=== PATIENT | female | born 1990 | race Caucasian/White ===

== ENCOUNTER 2018-10-10 07:37 | Inpatient (IN) ==
[2018-10-10] MEDS ORDERED: OXYTOCIN 30 UNITS/500 ML BAG IV PRN (07:53)
[2018-10-10] MEDS ORDERED: LACTATED RINGER'S 1,000 ML IV PRN ×2 (07:53→20:49)
[2018-10-10] MEDS ORDERED: DINOPROSTONE 10 MG INSERT PV ONE (07:53)
[2018-10-10] MEDS ORDERED: PENICILLIN G POTASSIUM 6 MU in DEXTROSE 5% 250 ML IV ONE (08:30)
[2018-10-10 08:31] LABS: Hematocrit (blood only) 39.1 % (37-47); Hemoglobin 13.3 g/dL (12.0-16.0); Mean Corpuscular Volume 89.3 fL (80-100); Platelet Count 202 K/uL (130-400); RDW Coefficient of Variation 13.7 % (11.5-14.5); RDW Standard Deviation 44.9 fL (36.4-46.3); Red Blood Count 4.38 M/uL (4.2-5.4); White Blood Count 10.38 K/uL (4.8-10.8)
--- NOTE | 2018-10-10 08:45 | Obstetrical Progress Note ---
Date of Service October 10, 2018 Subjective Admit Note 27 F at 44.5 weeks admitted for induction of labor for post-dates. GBS positive. Cervix fingertip/50/-3/vertex/posterior/firm/intact. FHT Cat 1. No contractions. Cervidil 10 mg placed vaginally for ripening of cervix. EFW 7.5 lbs. Physical Exam 2 Vital Signs (Past 24 Hours): Last Vital Signs Temp 36.5 C 10/10/18 07:54 Pulse 91 H 10/10/18 07:54 Resp 20 10/10/18 07:54 BP 130/71 10/10/18 07:54
[2018-10-10] MEDS ORDERED: PENICILLIN G POTASSIUM 6 MU in DEXTROSE 5% 250 ML IV STA (18:23)
--- NOTE | 2018-10-10 18:24 | Obstetrical Progress Note ---
Date of Service October 10, 2018 Subjective doing well some increase in contractions noted getting more painful 12/28 cervix 1-2/50/-3/anterior/soft FHT Cat 1 Physical Exam 2 Vital Signs (Past 24 Hours): Last Vital Signs Temp 36.5 C 10/10/18 17:03 Pulse 86 10/10/18 18:16 Resp 18 10/10/18 18:14 BP 122/73 10/10/18 18:16
[2018-10-10] MEDS: LACTATED RINGER'S 1,000 ML IV SCH (18:45)
[2018-10-10] MEDS ORDERED: BUTORPHANOL TARTRATE 1 MG/ML VIAL IV PRN (19:21)
[2018-10-10] MEDS ORDERED: ONDANSETRON INJ 2 MG/ML 2 ML VIAL IV PRN (19:21)
--- NOTE | 2018-10-10 20:49 | Obstetrical Progress Note ---
Date of Service October 10, 2018 Subjective Feeling more contractions Cervix 2/60/-3 Cervidil removed FHT Cat 1 Will start Oxytocin to augment contractions Physical Exam 2 Vital Signs (Past 24 Hours): Last Vital Signs Temp 36.6 C 10/10/18 19:04 Pulse 73 10/10/18 20:45 Resp 16 10/10/18 20:00 BP 125/69 10/10/18 19:13 Pulse Ox 99 10/10/18 20:45
[2018-10-10] MEDS: OXYTOCIN 30 UNITS/500 ML BAG IV PRN (22:21)
[2018-10-10] MEDS: PENICILLIN G POTASSIUM 3 MU in DEXTROSE 5% 100 ML IV PRN (22:24)
[2018-10-11] MEDS ORDERED: ePHEDrine sulfate 50 MG/ML AMP ONE (00:06)
[2018-10-11] MEDS ORDERED: BUPIVACAINE 0.25% 30 ML VIAL ONE (00:06)
[2018-10-11] MEDS ORDERED: fentaNYL citrate 100 MCG/2 ML VIAL ONE (00:06)
[2018-10-11] MEDS ORDERED: fentaNYL 2MCG/ML ROPIV 1.25MG/ML 100 ML BAG EPI ONE (00:07)
[2018-10-11] MEDS: LACTATED RINGER'S 1,000 ML IV SCH (00:53)
[2018-10-11] MEDS ORDERED: DiphenhydrAMINE HCL 50 MG/ML VIAL IV PRN (01:35)
[2018-10-11] MEDS ORDERED: LACTATED RINGER'S 1,000 ML IV PRN (01:35)
[2018-10-11] MEDS ORDERED: fentaNYL 2MCG/ML ROPIV 1.25MG/ML 100 ML BAG EPI PRN (01:35)
[2018-10-11] MEDS ORDERED: NALOXONE HCL 1 MG in SODIUM CHLORIDE 0.9% 1000ML 1,000 ML IV PRN (01:35)
[2018-10-11] MEDS ORDERED: NALBUPHINE HCL INJ 10 MG/ML AMP IV PRN (01:35)
[2018-10-11] MEDS ORDERED: NALOXONE HCL 0.4 MG/1 ML VIAL/CARP IV PRN (01:35)
[2018-10-11] MEDS ORDERED: ePHEDrine sulfate 50 MG/ML AMP IV PRN (01:35)
[2018-10-11] MEDS ORDERED: LIDOCAINE HCL 2% MPF (LOCAL) 5 ML VIAL INFIL ONE (01:38)
[2018-10-11] MEDS: PENICILLIN G POTASSIUM 3 MU in DEXTROSE 5% 100 ML IV PRN ×2 (02:23→06:21)
--- NOTE | 2018-10-11 02:50 | Anesthesiology Consultation ---
Date of Service October 11, 2018 Assessment & Plan Chart Review Chart Review: Acceptable Risk for Labor Epidural Consults Requested none ASA [id number] Proposed Anesthesia Risk / Benefits Reviewed With: PT / POA / Parent / Guardian History Height/Weight Height: 5 ft 3 in Weight: 73.482 kg Allergies Allergy/AdvReac Type Severity Reaction Status Date / Time Cephalosporins Allergy Intermediate Rash Verified 10/10/18 08:27 Sulfa (Sulfonamide Allergy Intermediate Hives Verified 10/10/18 08:27 Antibiotics) Medications Home Medications Medication Instructions Recorded Confirmed Last Taken PNV cmb#95-ferrous fumarate-FA 1 tab PO DAILY 10/10/18 10/10/18 10/09/18 08:30 [] Active Medications Generic Name Dose Route Start Last Admin Trade Name Freq PRN Reason Stop Dose Admin Lactated Ringer's 1,000 mls @ 125 mls/hr 10/10/18 08:00 10/11/18 02:25 Lr IV 10/12/18 07:59 0 mls/hr .Q8H ESTER Infusion Penicillin G Potassium 3 mu/ 106 mls @ 100 mls/hr 10/10/18 07:53 10/11/18 02: 23 Dextrose IV 10/20/18 07:52 106 mls/hr Q4H PRN Administration Give until delivery Oxytocin 30 units in 500 mls @ 3 mls/hr 10/10/18 20:49 10/10/18 23:31 Pitocin IV 10/12/18 20:48 0.18 units/hr .Q24H PRN 3 mls/hr Labor Induction/Augmentation Titration Protocol 0.18 UNITS/HR Ondansetron HCl 4 mg 10/10/18 19:21 10/10/18 19:35 Zofran IV 11/09/18 19:20 4 mg Q4H PRN Administration Nausea Past Medical History Medical History Abnormal Papanicolaou smear of cervix 2013 [place] teeth removed 2008 Past Family History Family History Mother Cancer Hypertension Grandfather (Maternal) Cancer Uncle Cancer Grandmother Cancer Hypertension Past Surgical History Surgical History H/O cone biopsy of cervix 2017 Hx of ROGER 2015 Social History Smoking Status: Never smoker Hx Alcohol Use: No Hx Substance Use: No Physical Exam Vital Signs Last Vital Signs Temp 36.7 C 10/11/18 00:50 Pulse 60 10/11/18 02:44 Resp 20 10/11/18 01:30 BP 100/57 L 10/11/18 02:43 Pulse Ox 98 10/11/18 02:44 Testing Laboratory Results 10/10/18 08:18
[2018-10-11] MEDS ORDERED: Nursing to Pharmacy Communication ONE (03:06)
[2018-10-11] MEDS ORDERED: fentaNYL citrate 100 MCG/2 ML VIAL IV STA (03:31)
[2018-10-11] MEDS: OXYTOCIN 30 UNITS/500 ML BAG IV PRN (07:08)
[2018-10-11] MEDS ORDERED: DIPHTHERIA/TETANUS/PERTUSSIS 0.5 ML SYR/VIAL IM ONE (08:58)
[2018-10-11] MEDS ORDERED: SUPERCREAM 0.870% 15 GM JAR EXT PRN (08:58)
[2018-10-11] MEDS ORDERED: ACETAMINOPHEN 325 MG TAB PO PRN (08:58)
[2018-10-11] MEDS ORDERED: OXYTOCIN 30 UNITS/500 ML BAG IV PRN (08:58)
[2018-10-11] MEDS ORDERED: BISACODYL 10 MG SUPP PR PRN (08:58)
[2018-10-11] MEDS ORDERED: HYDROCORTISONE ACETATE 25 MG SUPP PR PRN (08:58)
[2018-10-11] MEDS ORDERED: BENZOCAINE 20% AER SPR 82.5 GM CAN EXT PRN (08:58)
[2018-10-11] MEDS ORDERED: MEASLES, MUMPS & RUBELLA VIRUS VIAL SQ ONE (08:58)
--- NOTE | 2018-10-11 09:03 | Procedure Note ---
Vaginal Delivery Summary Date of Service October 11, 2018 Vaginal Delivery Summary Delivery Note live male over intact perineum NOVA with Apgars 9/9 weight pending. Delayed cord clamping followed by cord blood collection for stem cells. Placenta delivered spontaneously and intact. No tears. EBL 200 ml. Final sponge and instrument count are correct. Mom and baby stable.
[2018-10-11] MEDS ORDERED: NON-FORMULARY MEDICATION (Pnv Cmb#95-Ferrous Fumarate-Fa [Prenatal] 1 TAB) PO SCH (09:29)
--- NOTE | 2018-10-11 10:17 | Anesthesia Procedure Note ---
Date of Service October 11, 2018 Anesthesia Post Epidural Note Vital Signs Vital Signs: Temp Pulse Resp BP Pulse Ox 10/11/18 10:13 93 H 113/62 10/11/18 09:58 90 20 126/61 10/11/18 09:43 97 H 20 143/83 H 10/11/18 09:28 88 20 128/61 10/11/18 09:13 105 H 18 131/74 10/11/18 08:58 37.4 C 100 H 20 128/73 10/11/18 08:43 111 H 124/82 10/11/18 08:34 165 H 99 10/11/18 08:29 112 H 98 10/11/18 08:28 117 H 125/57 L 10/11/18 08:24 107 H 98 10/11/18 08:19 113 H 99 10/11/18 08:14 147 H 122/53 L 99 10/11/18 08:09 112 H 99 10/11/18 08:04 96 H 100 10/11/18 07:59 124 H 113/56 L 100 10/11/18 07:54 135 H 100 10/11/18 07:49 80 100 10/11/18 07:44 86 129/76 100 10/11/18 07:39 90 100 10/11/18 07:35 98 H 91 10/11/18 07:34 78 100 10/11/18 07:30 85 138/61 10/11/18 07:29 87 100 10/11/18 07:24 91 H 99 10/11/18 07:19 86 100 10/11/18 07:14 88 100 10/11/18 07:13 76 113/68 10/11/18 07:09 85 99 10/11/18 07:04 77 100 10/11/18 06:59 83 115/68 99 10/11/18 06:54 69 99 10/11/18 06:49 70 99 10/11/18 06:44 72 100 10/11/18 06:43 70 112/66 10/11/18 06:39 72 99 10/11/18 06:34 72 100 10/11/18 06:29 71 113/74 100 10/11/18 06:24 36.8 C 76 20 99 10/11/18 06:19 81 99 10/11/18 06:14 70 99 10/11/18 06:13 77 115/70 10/11/18 06:09 85 100 10/11/18 06:04 79 99 10/11/18 06:00 20 10/11/18 05:59 77 100 10/11/18 05:58 83 117/73 10/11/18 05:54 74 98 10/11/18 05:49 75 98 10/11/18 05:44 79 115/67 99 10/11/18 05:39 75 97 10/11/18 05:34 76 100 10/11/18 05:30 18 10/11/18 05:29 77 99 10/11/18 05:28 77 117/67 10/11/18 05:24 75 100 10/11/18 05:19 75 99 10/11/18 05:14 81 99 10/11/18 05:13 78 111/65 10/11/18 05:09 71 99 10/11/18 05:04 73 97 10/11/18 04:59 84 97 10/11/18 04:58 73 115/64 10/11/18 04:54 70 99 10/11/18 04:49 71 100 10/11/18 04:44 77 100 10/11/18 04:43 75 113/65 10/11/18 04:39 70 99 10/11/18 04:35 36.7 C 10/11/18 04:34 73 98 10/11/18 04:29 67 99 10/11/18 04:28 74 117/67 10/11/18 04:24 73 100 10/11/18 04:19 71 100 10/11/18 04:14 70 113/66 99 10/11/18 04:09 73 98 10/11/18 04:04 68 99 10/11/18 03:59 82 99 10/11/18 03:58 73 112/64 10/11/18 03:54 78 98 10/11/18 03:49 70 98 10/11/18 03:44 60 97 10/11/18 03:43 61 102/57 L 10/11/18 03:39 60 97 10/11/18 03:34 59 L 97 10/11/18 03:30 18 10/11/18 03:29 62 96 10/11/18 03:28 59 L 97/52 L 10/11/18 03:24 62 97 10/11/18 03:19 60 97 10/11/18 03:14 65 96 10/11/18 03:13 61 105/57 L 10/11/18 03:09 63 97 10/11/18 03:04 61 97 10/11/18 03:00 18 10/11/18 02:59 61 97 10/11/18 02:58 62 104/53 L 10/11/18 02:54 58 L 97 10/11/18 02:49 59 L 97 10/11/18 02:45 18 10/11/18 02:44 60 98 10/11/18 02:43 62 100/57 L 10/11/18 02:39 61 101/55 L 97 10/11/18 02:35 36.7 C 20 10/11/18 02:34 61 103/59 L 96 10/11/18 02:30 20 10/11/18 02:29 73 100 10/11/18 02:28 68 102/57 L 10/11/18 02:26 68 104/58 L 10/11/18 02:25 18 10/11/18 02:24 68 106/57 L 100 10/11/18 02:21 79 108/59 L 10/11/18 02:20 18 10/11/18 02:19 80 100 10/11/18 02:18 90 118/67 10/11/18 02:14 85 99 10/11/18 02:09 81 100 10/11/18 02:04 87 100 10/11/18 01:59 97 H 100 10/11/18 01:58 103 H 148/91 H 10/11/18 01:56 92 H 133/71 10/11/18 01:54 81 137/79 100 10/11/18 01:51 85 144/83 H 10/11/18 01:50 95 H 144/76 H 10/11/18 01:49 94 H 100 10/11/18 01:48 83 133/71 10/11/18 01:45 83 142/76 H 10/11/18 01:44 76 136/73 99 10/11/18 01:39 81 99 10/11/18 01:37 81 116/62 10/11/18 01:35 78 124/69 10/11/18 01:34 78 99 10/11/18 01:33 72 113/60 10/11/18 01:31 85 125/66 10/11/18 01:30 20 10/11/18 01:29 81 135/73 100 10/11/18 01:27 89 125/68 10/11/18 01:25 103 H 138/83 10/11/18 01:24 103 H 99 10/11/18 01:19 88 100 10/11/18 01:14 98 H 100 10/11/18 01:10 76 130/72 10/11/18 01:09 78 99 10/11/18 01:08 75 139/74 10/11/18 01:06 78 138/72 10/11/18 01:04 93 H 130/80 99 10/11/18 01:02 85 130/71 10/11/18 01:00 87 142/75 H 10/11/18 00:59 74 91 10/11/18 00:58 72 125/66 10/11/18 00:56 75 150/80 H 10/11/18 00:55 20 10/11/18 00:54 100 H 142/81 H 100 10/11/18 00:52 75 137/84 10/11/18 00:50 36.7 C 74 20 132/90 10/11/18 00:49 80 100 10/11/18 00:48 80 135/82 10/11/18 00:46 86 144/94 H 10/11/18 00:45 20 10/11/18 00:44 75 120/66 99 10/11/18 00:42 91 H 150/73 H 10/11/18 00:40 20 10/11/18 00:39 84 144/65 H 100 10/11/18 00:34 81 100 10/11/18 00:29 84 100 10/11/18 00:24 84 100 10/11/18 00:00 85 148/85 H 10/10/18 22:58 76 129/78 10/10/18 22:23 36.6 C 71 18 131/79 10/10/18 20:45 73 99 10/10/18 20:40 73 99 10/10/18 20:35 65 97 10/10/18 20:30 65 96 10/10/18 20:25 80 97 10/10/18 20:20 71 96 02/20/19 20:15 72 97 10/10/18 20:10 68 97 10/10/18 20:05 75 97 10/10/18 20:00 76 16 97 10/10/18 19:55 73 97 10/10/18 19:50 77 97 10/10/18 19:45 79 18 97 10/10/18 19:40 82 100 10/10/18 19:13 71 125/69 10/10/18 19:04 36.6 C 18 10/10/18 18:16 86 122/73 10/10/18 18:14 18 10/10/18 17:04 78 134/72 10/10/18 17:03 36.5 C 20 10/10/18 15:31 66 116/63 10/10/18 15:30 36.4 C L 20 10/10/18 14:14 68 120/64 10/10/18 14:12 20 10/10/18 13:13 70 127/73 10/10/18 11:32 36.5 C 61 20 117/68 Pain Intensity Abdomen: Pain Intensity: 0 Notes Mental Status: alert / awake / arousable and participated in evaluation Nausea / Vomiting: adequately controlled Pain: adequately controlled Airway Patency, RR, SpO2: stable & adequate BP & HR: stable & adequate Hydration State: stable & adequate Neuraxial Anesthesia: was administered and sensory block is resolving Anesthetic Complications: no major complications apparent and Pt Satisfied with anesthetic care Epidural: Removed without complications and With tip intact
[2018-10-11] MEDS: IBUPROFEN 600 MG TAB PO PRN ×2 (11:02→20:50)
[2018-10-11] MEDS: DOCUSATE SODIUM 100 MG CAP PO SCH ×2 (11:57→20:49)
[2018-10-11] MEDS: FERROUS SULFATE 325 MG TAB PO SCH (11:57)
[2018-10-11] MEDS: PRENATAL VITAMIN 1 TAB PO SCH (11:58)
[2018-10-12 06:34] LABS: Hematocrit (blood only) 37.9 % (37-47); Hemoglobin 12.5 g/dL (12.0-16.0); Mean Corpuscular Volume 89.6 fL (80-100); Mean Platelet Volume 12.2 fL (7.4-10.4); Platelet Count 169 K/uL (130-400); RDW Coefficient of Variation 14.1 % (11.5-14.5); RDW Standard Deviation 45.9 fL (36.4-46.3); Red Blood Count 4.23 M/uL (4.2-5.4); White Blood Count 13.01 K/uL (4.8-10.8)
--- NOTE | 2018-10-12 08:16 | Obstetrical Progress Note ---
Date of Service October 12, 2018 Subjective Patient is seen and examined. She feels well, no complaints. Ambulating without dizziness Voiding without difficulty Tolerating regular diet with out N&V Bleeding is minimal No fever/ chills/ CP/ SOB/ N&V/ Leg pain Breast feeding without problems Vital Signs Temp Pulse Pulse Resp BP BP Pulse Ox 10/12/18 04:15 36.9 C 77 20 109/64 98 10/11/18 23:50 36.8 C 63 16 120/73 98 10/11/18 19:40 37.0 C 82 18 111/71 10/11/18 16:15 36.9 C 70 18 128/61 10/11/18 12:20 37.0 C 83 18 119/71 10/11/18 11:38 37.7 C H 90 90 20 126/65 110/64 10/11/18 11:13 97 H 115/66 10/11/18 10:58 93 H 110/64 10/11/18 10:43 105 H 112/63 10/11/18 10:28 86 115/64 10/11/18 10:13 93 H 113/62 10/11/18 09:58 90 20 126/61 10/11/18 09:43 97 H 20 143/83 H 10/11/18 09:28 88 20 128/61 10/11/18 09:13 105 H 18 131/74 10/11/18 08:58 37.4 C 100 H 20 128/73 10/11/18 08:43 111 H 124/82 10/11/18 08:34 165 H 99 10/11/18 08:29 112 H 98 10/11/18 08:28 117 H 125/57 L 10/11/18 08:24 107 H 98 10/11/18 08:19 113 H 99 10/12/18 Range/Units 06:17 WBC 13.01 H (4.8-10.8) K/uL RBC 4.23 (4.2-5.4) M/uL Hgb 12.5 (12.0-16.0) g/dL Hct 37.9 (37-47) % MCV 89.6 (80-100) fL MCH 29.6 (25-34) pg MCHC 33.0 (32-36) g/dL RDW Std Deviation 45.9 (36.4-46.3) fL RDW Coeff of Jaswant 14.1 (11.5-14.5) % Plt Count 169 (130-400) K/uL MPV 12.2 H (7.4-10.4) fL PE: General: Alert, orientedx3, NAD Abd: soft, NT, fundus firm, below Umbilicus Perineum intact, Lochia rubra minimal Ext; NT, no edema AP: 27 yo s/p , ppd# 1 VSS Afebrile doing well Continue routine care All questions were answered D/C home tomorrow Physical Exam 2 Vital Signs (Past 24 Hours): Last Vital Signs Temp 36.9 C 10/12/18 04:15 Pulse 77 10/12/18 04:15 Resp 20 10/12/18 04:15 BP 109/64 10/12/18 04:15 Pulse Ox 98 10/12/18 04:15
[2018-10-12] MEDS: DOCUSATE SODIUM 100 MG CAP PO SCH ×2 (09:28→20:25)
[2018-10-12] MEDS: FERROUS SULFATE 325 MG TAB PO SCH (09:29)
[2018-10-12] MEDS: PRENATAL VITAMIN 1 TAB PO SCH (09:29)
[2018-10-12] MEDS ORDERED: BISACODYL 5 MG TABEC PO SCH (20:00)
[2018-10-13 06:57] LABS: Hematocrit (blood only) 35.3 % (37-47); Hemoglobin 11.8 g/dL (12.0-16.0)
[2018-10-13] MEDS: DOCUSATE SODIUM 100 MG CAP PO SCH (09:11)
[2018-10-13] MEDS: PRENATAL VITAMIN 1 TAB PO SCH (09:11)
[2018-10-13] MEDS: FERROUS SULFATE 325 MG TAB PO SCH (09:11)
--- NOTE | 2018-10-13 10:00 | Obstetrical Progress Note ---
Date of Service October 13, 2018 Subjective doing well planning for discharge Physical Exam 2 Vital Signs (Past 24 Hours): Last Vital Signs Temp 37 C 10/13/18 09:41 Pulse 78 10/13/18 09:41 Resp 16 10/13/18 09:41 BP 108/67 10/13/18 09:41 Pulse Ox 96 10/13/18 09:41 Constitutional: WD/WN, vitals as above comfortable Gastrointestinal (Abdomen): Inspection/Auscultation: abdomen normal to inspection Percussion/Palpation: abdomen soft no edema for discharge today Results & Data Laboratory Results Laboratory Results - last 72 hr 10/12/18 10/13/18 06:17 06:46 WBC 13.01 H RBC 4.23 Hgb 12.5 11.8 L Hct 37.9 35.3 L MCV 89.6 MCH 29.6 MCHC 33.0 RDW Std Deviation 45.9 RDW Coeff of Jaswant 14.1 Plt Count 169 MPV 12.2 H
== END 2018-10-13 13:05 | disposition home or self-care (01) | DRG 807 ==
LOC: 4S1 07:37 → 4S2 10-11 12:29

== ENCOUNTER 2021-02-01 06:01 | Inpatient (IN) ==
[2021-02-01] MEDS ORDERED: ceFAZolin 2000MG 2,000 MG/15 ML SYR IV STA (07:03)
[2021-02-01] MEDS ORDERED: OXYTOCIN 30 UNITS/500 ML BAG IV PRN ×3 (07:03→23:12)
[2021-02-01] MEDS ORDERED: ceFAZolin 1000MG 1,000 MG/7.5 ML SYR IV PRN (07:03)
--- NOTE | 2021-02-01 07:29 | History & Physical Report ---
Date of Service February 01, 2021 Assessment & Plan (1) premature rupture of membranes (PPROM) with onset of labor within 24 hours of rupture in third trimester, antepartum: History of Present Illness Chief Complaint: SROM at 36 weeks with onset of labor Primary Care Provider: Dominga Gibbons, DO 30 F P1001 at 36.1 weeks with SROM clear fluid this AM. Allergies Allergy/AdvReac Type Severity Reaction Status Date / Time Cephalosporins Allergy Intermediate Rash Verified 02/01/21 06:43 Sulfa (Sulfonamide Allergy Intermediate Hives Verified 02/01/21 06:43 Antibiotics) Home Medications Medication Instructions Recorded Confirmed Type PNV cmb#95-ferrous fumarate-FA 1 tab PO DAILY 10/10/18 02/01/21 History [] Patient History Medical History (Updated 02/01/21 @ 07:28 by Gordon Cordova MD) Abnormal Papanicolaou smear of cervix 2012 Surgical History H/O cone biopsy of cervix 2016 Hx of LASIK 2015 [place] teeth removed 2008 Family History Mother Cancer Hypertension Grandfather (Maternal) Cancer Uncle Cancer Grandmother Cancer Hypertension Social History Smoking Status: Never smoker Hx Alcohol Use: No Hx Substance Use: No Preferred Language: Kosovan Communication Ability: Effective Core Measures Abstractor Required: No Beliefs That Will Affect Care: None marital status: Current Living Situation: Spouse and Family Other Information That Helps Us Care for You: No Feels Safe at Home: Yes Safety Concerns: Feels Safe At This Time Assistive Devices: None OB History x1 [employer]INE[employer] History CLARITZA III with history of LEEP Physical Exam Constitutional: WD/WN, vitals as above well developed and comfortable Respiratory: normal respiratory effort, lungs clear to auscultation Cardiovascular: RRR, no murmur, no edema Rate/Rhythm: regular rate Skin: no rashes, warm and dry Neurologic: patellar DTR's 2+ bilat, sensation intact Psychiatric: A+Ox3, euthymic affect Genitourinary: OB Exam Abdomen: + estimated weight (7 lbs) Manual OB Exam: + cervical dilation 1 cm, + cervical effacement 50%, + station high and + amniotic fluid OB Exam Monitor Tracing: + external FHT monitor used, + external uterine monitor used, + category I and + normal FHT variability position uncertain and will obtain bedside ultrasound to confirm vertex Results & Data ([facility]) Vital Signs (Past 12 Hours) Vital Signs Temp Pulse Resp BP 02/01/21 07:04 37.1 C 83 20 118/67 02/01/21 06:20 36.8 C 79 18 124/69 Code Status & VTE Plan VTE Prophylaxis Plan VTE Prophylaxis will be ordered: No Monitoring External Monitor FHT CAT 1
[2021-02-01] MEDS ORDERED: OXYTOCIN 30 UNITS/500 ML BAG IV SCH (07:48)
[2021-02-01] MEDS: LACTATED RINGER'S 1,000 ML IV PRN ×3 (08:01→21:09)
[2021-02-01 08:33] LABS: Hematocrit (blood only) 35.9 % (37-47); Mean Corpuscular Hemoglobin 29.3 pg (25-34); Mean Corpuscular Hgb Conc 33.4 g/dL (32-36); Mean Corpuscular Volume 87.8 fL (80-100); Mean Platelet Volume 12.5 fL (7.4-10.4); Platelet Count 224 K/uL (130-400); RDW Coefficient of Variation 13.4 % (11.5-14.5); RDW Standard Deviation 43.6 fL (36.4-46.3); Red Blood Count 4.09 M/uL (4.2-5.4); White Blood Count 11.12 K/uL (4.8-10.8)
--- NOTE | 2021-02-01 09:16 | Ultrasound Report ---
US OB limited CLINICAL HISTORY: confirm position COMPARISON STUDY: No previous studies for comparison. TECHNIQUE: Limited transabdominal ultrasound was performed to assess position. FINDINGS: Please note that a dedicated anatomical survey was not performed. heart rate is normal at 145 bpm. Presentation is cephalic. IMPRESSION: 1. Single viable intrauterine gestation. 2. Cephalic position. ACT 112: Negative or not required by law. Electronically signed by: Ildefonso Galindo M.D. 02/01/2021 9:15 AM
--- NOTE | 2021-02-01 16:03 | Labor Progress Brief Note ---
Date of Service February 01, 2021 Physical Exam Genitourinary: Manual OB Exam: + cervical dilation 1 cm and 2 cm, + cervical effacement 50% and 60%, + station high and + amniotic fluid clear OB Exam Monitor Tracing: + external FHT monitor used, + external uterine monitor used, + category I and + normal FHT variability Results & Data ([facility]) Vital Signs (Past 12 Hours) Vital Signs Temp Pulse Resp BP 02/01/21 16:00 37.2 C 72 20 118/70 02/01/21 14:58 37.1 C 67 20 110/62 02/01/21 14:13 67 120/75 02/01/21 13:01 37.0 C 75 18 123/73 02/01/21 12:28 79 18 121/80 02/01/21 12:18 77 120/71 02/01/21 10:59 37.1 C 85 20 123/66 02/01/21 10:31 84 117/60 02/01/21 09:06 37.2 C 80 20 122/70 02/01/21 07:04 37.1 C 83 20 118/67 02/01/21 06:20 36.8 C 79 18 124/69
[2021-02-01] MEDS: BUTORPHANOL TARTRATE 1 MG/ML VIAL IV PRN ×2 (17:25→19:36)
[2021-02-01] MEDS ORDERED: BUPIVACAINE 0.25% 30 ML VIAL ONE (20:24)
[2021-02-01] MEDS ORDERED: fentaNYL citrate 100 MCG/2 ML VIAL ONE (20:24)
[2021-02-01] MEDS ORDERED: ePHEDrine sulfate 50 MG/ML AMP ONE (20:24)
[2021-02-01] MEDS ORDERED: SODIUM CHLORIDE 0.9% INJ 10 ML VIAL ONE (20:24)
[2021-02-01] MEDS ORDERED: fentaNYL 2MCG/ML ROPIVACAINE 1.25MG/ML 100 ML BAG EPI ONE (20:25)
--- NOTE | 2021-02-01 20:44 | Anesthesiology Consultation ---
Date of Service February 01, 2021 Assessment & Plan (1) Encounter for pre-operative examination: Chart Review Chart Review: Acceptable Risk for Labor Epidural History Height/Weight Height: 5 ft 3 in Weight: 72.121 kg Allergies Allergy/AdvReac Type Severity Reaction Status Date / Time Cephalosporins Allergy Intermediate Rash Verified 02/01/21 06:43 Sulfa (Sulfonamide Allergy Intermediate Hives Verified 02/01/21 06:43 Antibiotics) Medications Home Medications Medication Instructions Recorded Confirmed Last Taken PNV cmb#95-ferrous fumarate-FA 1 tab PO DAILY 10/10/18 02/01/21 02/01/21 05:00 [] Active Medications Generic Name Dose Route Start Last Admin Trade Name Freq PRN Reason Stop Dose Admin Butorphanol Tartrate 1 mg 02/01/21 17:01 02/01/21 19:36 Butorphanol Tartrate 1 Mg/Ml Vial IV 03/03/21 17:00 1 mg Q2R PRN Administration Pain Cefazolin Sodium 1,000 mg in 7.5 mls @ 2.5 mls/min 02/01/21 07:03 02/01/21 16:02 Ancef 1000mg IV 02/11/21 07:02 2.5 mls/min Q8H PRN Administration Until Delivery Lactated Ringer's 1,000 mls @ 125 mls/hr 02/01/21 07:03 02/01/21 19:01 Lr IV 02/03/21 07:02 125 mls/hr .Q8H PRN Infusion L&D Protocol Protocol Oxytocin 30 units in 500 mls @ 11 mls/hr 02/01/21 08:59 02/01/21 19:01 Pitocin IV 02/03/21 08:58 0.66 units/hr .Q24H PRN 11 mls/hr Labor Induction/Augmentation Titration Protocol 0.66 UNITS/HR Past Medical History Medical History (Updated 02/01/21 @ 20:43 by Kvng Becker MD) Abnormal Papanicolaou smear of cervix 2012 Past Family History Family History Mother Cancer Hypertension Grandfather (Maternal) Cancer Uncle Cancer Grandmother Cancer Hypertension Past Surgical History Surgical History H/O cone biopsy of cervix 2017 Hx of GRAHAMIK 2015 [place] teeth removed 2008 Social History Smoking Status: Never smoker Hx Alcohol Use: No Hx Substance Use: No Physical Exam Vital Signs Last Vital Signs Temp 36.7 C 02/01/21 19:03 Pulse 76 02/01/21 20:29 Resp 20 02/01/21 20:10 BP 121/75 02/01/21 20:11 Pulse Ox 100 02/01/21 20:29 Testing Laboratory Results 02/01/21 07:20
[2021-02-01] MEDS ORDERED: NALOXONE HCL 1 MG in SODIUM CHLORIDE 0.9% 1000ML 1,000 ML IV PRN (21:04)
[2021-02-01] MEDS ORDERED: fentaNYL 2MCG/ML ROPIVACAINE 1.25MG/ML 100 ML BAG EPI PRN (21:04)
[2021-02-01] MEDS ORDERED: NALOXONE HCL 0.4 MG/1 ML VIAL/CARP IV PRN (21:04)
[2021-02-01] MEDS ORDERED: ONDANSETRON INJ 2 MG/ML 2 ML VIAL IV PRN (21:04)
[2021-02-01] MEDS ORDERED: ePHEDrine sulfate 50 MG/ML AMP IV PRN (21:04)
[2021-02-01] MEDS ORDERED: DIPHTHERIA/TETANUS/PERTUSSIS 0.5 ML SYR/VIAL IM ONE (23:12)
[2021-02-01] MEDS ORDERED: bisacodyL 10 MG SUPP PR PRN (23:12)
[2021-02-01] MEDS ORDERED: HYDROCORTISONE ACETATE 25 MG SUPP PR PRN (23:12)
[2021-02-01] MEDS ORDERED: SUPERCREAM 0.870% 15 GM JAR EXT PRN (23:12)
[2021-02-01] MEDS ORDERED: ACETAMINOPHEN 325 MG TAB PO PRN (23:12)
[2021-02-01] MEDS ORDERED: BENZOCAINE 20% AER SPR 82.5 GM CAN EXT PRN (23:12)
--- NOTE | 2021-02-01 23:17 | Obstetrical Progress Note ---
Date of Service February 01, 2021 Results & Data ([facility]) Vital Signs (Past 12 Hours) Vital Signs Temp Pulse Resp BP 02/01/21 07:04 37.1 C 83 20 118/67 02/01/21 06:20 36.8 C 79 18 124/69
--- NOTE | 2021-02-01 23:17 | Delivery Summary ---
Vaginal Delivery Summary Date of Service February 01, 2021 Vaginal Delivery Summary Delivery Note live male NOVA over intact perineum with delayed cord clamping and Apgars 8/9 weight pending. Cord blood obtained followed by spontaneous delivery of intact placenta with accessory lobe noted. Placenta sent to pathology. No tears. EBL 100 ml. Final sponge and instrument count are correct. Mom and baby stable.
[2021-02-02 06:32] LABS: Hematocrit (blood only) 35.1 % (37-47); Hemoglobin 11.5 g/dL (12.0-16.0); Mean Corpuscular Hemoglobin 29.3 pg (25-34); Mean Corpuscular Hgb Conc 32.8 g/dL (32-36); Mean Corpuscular Volume 89.3 fL (80-100); Mean Platelet Volume 11.6 fL (7.4-10.4); Platelet Count 219 K/uL (130-400); RDW Coefficient of Variation 13.6 % (11.5-14.5); Red Blood Count 3.93 M/uL (4.2-5.4); White Blood Count 15.03 K/uL (4.8-10.8)
[2021-02-02] MEDS: PRENATAL VITAMIN 1 TAB PO SCH (08:23)
[2021-02-02] MEDS: DOCUSATE SODIUM 100 MG CAP PO SCH ×2 (08:23→20:32)
[2021-02-02] MEDS: FERROUS SULFATE 325 MG TAB PO SCH (08:23)
[2021-02-02] MEDS ORDERED: NON-FORMULARY MEDICATION (Pnv Cmb#95-Ferrous Fumarate-Fa [Prenatal] 28 mg iron- 800 mcg Ta PO SCH (09:00)
--- NOTE | 2021-02-02 09:35 | Anesthesia Procedure Note ---
Date of Service February 02, 2021 Anesthesia Post Epidural Note Vital Signs Vital Signs: Temp Pulse Resp BP Pulse Ox 37.0 C 72 16 118/76 99 02/02/21 05:35 02/02/21 05:35 02/02/21 05:35 02/02/21 05:35 02/02/21 05:35 Notes Mental Status: alert / awake / arousable and participated in evaluation Nausea / Vomiting: adequately controlled Pain: adequately controlled Airway Patency, RR, SpO2: stable & adequate BP & HR: stable & adequate Hydration State: stable & adequate Neuraxial Anesthesia: was administered and sensory block is resolving Anesthetic Complications: no major complications apparent and Pt Satisfied with anesthetic care Epidural: Removed without complications and With tip intact Notes: Epidural site clean, dry and intact. No signs of edema, erythema or bruising at insertion site. Pt instructed to request anesthesia if she has residual lower extremity numbness or if she develops lower extremity pain or weakness, back pain or headache.
[2021-02-02] MEDS: IBUPROFEN 600 MG TAB PO PRN (09:39)
--- NOTE | 2021-02-02 11:12 | Obstetrical Progress Note ---
Date of Service February 02, 2021 Assessment & Plan (1) Normal course: PPD #1 pt doing well no complaints anticipate disch tomorrow Subjective Ambulation: ambulating normally Voiding: no voiding problems Passing Gas:: Yes Diet Tolerance:: regular diet Lochia:: Small Feeding Type:: breast feeding Review of Systems All systems reviewed & are unremarkable except as noted in HPI & below Physical Exam Constitutional WD/WN, vitals as above well developed and well nourished Eyes PERRL, conjunctivae normal, anicteric sclerae Neck trachea midline, no thyromegaly Respiratory normal respiratory effort, lungs clear to auscultation Auscultation: no crackles, no rales and no wheezes Cardiovascular RRR, no murmur, no edema Gastrointestinal (Abdomen) normal bowel sounds, soft, nontender, no hepatosplenomegaly Uterus is below umbilicus Musculoskeletal no cyanosis or clubbing, extremities motor strength 5/5 Skin no rashes, warm and dry Neurologic patellar DTR's 2+ bilat, sensation intact Psychiatric A+Ox3, euthymic affect Genitourinary normal external appearance Results & Data ([facility]) Vital Signs (Past 12 Hours) Vital Signs Temp Pulse Pulse Resp BP BP Pulse Ox 02/02/21 09:40 37 C 78 18 108/69 98 02/02/21 05:35 37.0 C 72 16 118/76 99 02/02/21 02:15 37.0 C 72 17 119/70 97 02/02/21 01:07 96 H 118/62 02/02/21 01:05 37.1 C 20 02/02/21 00:52 88 125/61 02/02/21 00:36 79 119/73 02/02/21 00:35 16 02/02/21 00:22 73 117/72 02/02/21 00:07 83 114/55 L 02/02/21 00:05 16 02/01/21 23:51 80 117/69 02/01/21 23:50 18 02/01/21 23:36 73 116/69 02/01/21 23:35 18 02/01/21 23:22 89 117/71 02/01/21 23:20 20
[2021-02-02] MEDS ORDERED: bisacodyL 5 MG TABEC PO SCH (20:00)
[2021-02-03] MEDS: PRENATAL VITAMIN 1 TAB PO SCH (07:32)
[2021-02-03] MEDS: FERROUS SULFATE 325 MG TAB PO SCH (07:32)
[2021-02-03] MEDS: DOCUSATE SODIUM 100 MG CAP PO SCH ×2 (07:44→21:52)
[2021-02-03 07:51] LABS: Hematocrit (blood only) 36.5 % (37-47); Hemoglobin 11.9 g/dL (12.0-16.0)
--- NOTE | 2021-02-03 08:47 | Obstetrical Progress Note ---
Date of Service February 03, 2021 PPD#2 Subjective Ambulation: ambulating normally Voiding: no voiding problems Passing Gas:: Yes Diet Tolerance:: regular diet Lochia:: Small Feeding Type:: breast feeding abdomen soft and non-tender no edema neg Delphine's for d/c today Results & Data ([facility]) Vital Signs (Past 12 Hours) Vital Signs Temp Pulse Pulse Resp BP BP Pulse Ox 02/03/21 07:46 36.8 C 83 18 119/77 96 02/03/21 00:10 37.0 C 73 20 123/76 Laboratory Results Laboratory Results - last 48 hr 02/02/21 02/03/21 06:11 07:29 WBC 15.03 H RBC 3.93 L Hgb 11.5 L 11.9 L Hct 35.1 L 36.5 L MCV 89.3 MCH 29.3 MCHC 32.8 RDW Std Deviation 45.0 RDW Coeff of Jaswant 13.6 Plt Count 219 MPV 11.6 H
[2021-02-04] MEDS: IBUPROFEN 600 MG TAB PO PRN (04:28)
[2021-02-04] MEDS: FERROUS SULFATE 325 MG TAB PO SCH (07:41)
[2021-02-04] MEDS: DOCUSATE SODIUM 100 MG CAP PO SCH (07:42)
[2021-02-04] MEDS: PRENATAL VITAMIN 1 TAB PO SCH (07:42)
--- NOTE | 2021-02-04 09:42 | Obstetrical Progress Note ---
Date of Service February 04, 2021 Subjective Ambulation: ambulating normally Passing Gas:: Yes Diet Tolerance:: regular diet Lochia:: Small Feeding Type:: breast feeding doing well will go to [facility] due to baby under [facility]ili-[facility] Results & Data ([facility]) Vital Signs (Past 12 Hours) Vital Signs Temp Pulse Resp BP Pulse Ox 02/04/21 07:15 36.7 C 75 16 117/80 97 02/03/21 23:30 36.9 C 79 17 118/77 96 Laboratory Results 02/01/21 02/01/21 02/01/21 07:20 07:20 07:20 WBC 11.12 H RBC 4.09 L Hgb 12.0 Hct 35.9 L MCV 87.8 MCH 29.3 MCHC 33.4 RDW Std Deviation 43.6 RDW Coeff of Jaswant 13.4 Plt Count 224 MPV 12.5 H COVID-19 [facility] SARS-CoV-2, RNA, NAAT NEGATIVE 02/02/21 02/03/21 06:11 07:29 WBC 15.03 H RBC 3.93 L Hgb 11.5 L 11.9 L Hct 35.1 L 36.5 L MCV 89.3 MCH 29.3 MCHC 32.8 RDW Std Deviation 45.0 RDW Coeff of Jaswant 13.6 Plt Count 219 MPV 11.6 H COVID-19 Eval Order SARS-CoV-2, RNA, NAAT
== END 2021-02-04 16:30 | disposition home or self-care (01) | DRG 807 ==
LOC: OPB 06:01 → 4S1 06:13 → 4S2 02-02 02:03